=== PATIENT | female | born 1965 | race Caucasian/White ===

== ENCOUNTER 2019-11-29 21:24 | Emergency (ER) | payer BC ==
[2019-11-29] MEDS ORDERED: methylPREDNISolone Sodium Succinate 125 MG/2 ML SDV IM ONE (22:32)
[2019-11-29] MEDS ORDERED: Ketorolac 60 MG/2 ML SDV IM ONE (22:33)
--- NOTE | 2019-11-29 22:42 | EDM.PDOC ---
ED HPI GENERAL MEDICAL PROBLEM - General Chief Complaint: General Stated Complaint: R HIP PAIN Time Seen by Provider: 11/29/19 22:00 Source of Information: Reports: Patient History Limitations: Reports: No Limitations - History of Present Illness INITIAL COMMENTS - FREE TEXT/NARRATIVE: Right hip pain present for last 2 weeks. Has been on feet more at work, but denies any other change in activity or injury. Sometimes radiates down proximal hip. No numbness or tingling. No leg weakness. No history of similar pain in past. Movement makes it worse. Trying to get out of bed in mornings causes pain. Taking OTC meds but no help. Pain overall is getting worse. 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: Reports: Other (see below) Other 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: aleve at 1930, bio mendoza Right Hip Pain Score (Numeric/FACES): 8 - Related Data Allergies Allergy/AdvReac Type Severity Reaction Status Date / Time No Known Allergies Allergy Verified 11/29/19 21:33 Home Meds: Home Meds Acetaminophen [Tylenol Extra Strength] 1,000 mg PO Q6H PRN 11/29/19 [History] Ibuprofen [Advil] 400 mg PO Q6H PRN 11/29/19 [History] Menthol [Biofreeze] 1 applic TP Q4H PRN 11/29/19 [History] Naproxen Sodium [Aleve] 220 mg PO BID PRN 11/29/19 [History] Past Medical History HEENT History: Reports: Impaired Vision DISTRICT ATTORNEY History: Reports: Other (See Below) Other DISTRICT ATTORNEY History: D& C after childbirth Endocrine/Metabolic History: Reports: Obesity/BMI 30+ Dermatologic History: Reports: None - Past Surgical History Musculoskeletal Surgical History: Reports: Other (See Below) Other Musculoskeletal Surgeries/Procedures:: bunionectomy, bilat. Social & Family History - Tobacco Use Smoking Status *Q: Never Smoker Second Hand Smoke Exposure: No - Caffeine Use Caffeine Use: Reports: Coffee - Recreational Drug Use Recreational Drug Use: No ED ROS GENERAL - Review of Systems Review Of Systems: See Below Constitutional: Reports: No Symptoms. Denies: Fever, Chills HEENT: Reports: Other (no acute changes) Respiratory: Reports: No Symptoms Cardiovascular: Reports: No Symptoms GI/Abdominal: Reports: No Symptoms : Reports: No Symptoms Musculoskeletal: Reports: Other (right hip pain) Skin: Reports: No Symptoms Neurological: Reports: Difficulty Walking (right hip pain), Gait Disturbance (right hip pain). Denies: Dizziness, Numbness, Paresthesia, Tingling ED EXAM, GENERAL - Physical Exam Exam: See Below Exam Limited By: No Limitations General Appearance: Alert, Obese, Other (intermittent complaint of pain during exam during certain movements. ) Eye Exam: Bilateral Eye: EOMI, PERRL Ears: Hearing Grossly Normal Nose: No: Nasal Deformity, Nasal Swelling, Nasal Drainage Throat/Mouth: Normal Voice, No Airway Compromise Head: Atraumatic, Normocephalic Neck: Supple Respiratory/Chest: No Respiratory Distress, Lungs Clear, Normal Breath Sounds, No Accessory Muscle Use, Chest Non-Tender Cardiovascular: Regular Rate, Rhythm, No Murmur GI/Abdominal: Normal Bowel Sounds, Soft, Non-Tender, No Distention (Female) Exam: Deferred Rectal (Female) Exam: Deferred Back Exam: Decreased Range of Motion (due to right low back/right hip pain). No: CVA Tenderness (L), CVA Tenderness (R), Paraspinal Tenderness, Vertebral Tenderness Extremities: Normal Capillary Refill, Limited Range of Motion (right leg/patient cannot lift it without low back pain. Negative straight leg raise with passive ROM bilateral legs. Has tenderness in sciatic notch with palpation that reproduces patient's pain complaint. ) Neurological: Alert, Oriented, Normal Cognition, Normal Reflexes, No Motor/Sensory Deficits Psychiatric: Normal Affect, Normal Mood Skin Exam: Warm, Dry, Intact, Normal Color, No Rash Course - Vital Signs Last Recorded V/S: Last Vital Signs Temp 36.8 C 11/29/19 21:26 Pulse 74 11/29/19 21:26 Resp 16 11/29/19 21:26 BP 162/88 H 11/29/19 21:35 Pulse Ox 99 11/29/19 21:26 - Orders/Labs/Meds Orders: Active Orders 24 hr Category Date Time Status Hip Min 2V or 3V Rt [CR] Stat Exams 11/29/19 21:43 Taken Lumbar Spine 2 or 3V [CR] Stat Exams 11/29/19 21:44 Taken Meds: Medications Discontinued Medications Generic Name Dose Route Start Last Admin Trade Name Freq PRN Reason Stop Dose Admin Ketorolac Tromethamine 60 mg 06/20/20 22:33 Toradol IM 11/29/19 22:34 ONETIME ONE Methylprednisolone Sodium Succinate 125 mg 11/29/19 22:32 Solu-Medrol IM 11/29/19 22:33 ONETIME ONE - Re-Assessments/Exams Free Text/Narrative Re-Assessment/Exam: Xray of right hip and lumbar spine showed no acute changes or significant degenerative changes. Abnormality of T10 noted that is of unknown significance. No pain complaint/tenderness in that area. Pending formal Radiology review. Will treat for sciatica/low back pain exacerbation. Single dose of Toradol and Solu-medrol given to help with pain and swelling. Send home bottles of Tramadol (10) and Flexeril for use for spasm and pain. Cautions reviewed with patient concerning side effects of meds and not to take extra doses. Recommend follow up to establish a primary care provider for routine physical/recheck BP and assess for HTN/and re-evaluated right sciatic complaint. Patient may benefit from referral to PT and may require additional imaging if pain does not improve. Departure - Departure Time of Disposition: 22:55 Disposition: Home, Self-Care 01 Condition: Good Clinical Impression: Right-sided low back pain with sciatica Qualifiers: Chronicity: acute Sciatica laterality: sciatica of right side Qualified Code(s): M54.41 - Lumbago with sciatica, right side HTN (hypertension) Qualifiers: Hypertension type: essential hypertension Qualified Code(s): I10 - Essential (primary) hypertension - Discharge Information *PRESCRIPTION DRUG MONITORING PROGRAM REVIEWED*: Not Applicable *COPY OF PRESCRIPTION DRUG MONITORING REPORT IN PATIENT [place]: Not Applicable Instructions: Sciatica, Hypertension, Adult, [id number] Referrals: PCP,None [Primary Care Provider] - Additional Instructions: Take Flexeril for muscle spasms, and Tramadol for pain. OK to try CBD oil. Follow up with a local primary care provider for recheck in the next week if pain does not improve significantly. You may benefit from referral to PT as we discussed. You may need additional imaging to get a better look at the low back. You also need to get a basic physical and have some screening labs to make certain things appear to be functioning well, such as your kidneys, and that blood sugar is in normal range. You blood pressure was high tonight and that also needs to be rechecked. If it is not in normal range, you can discuss diet/possible meds to help treat it. Follow up as needed otherwise if you have worsening problems. Sepsis Event Note (ED) - Evaluation Sepsis Screening Result: No Definite Risk - Focused Exam Vital Signs: Vital Signs Temp Pulse Resp BP Pulse Ox 11/29/19 21:35 162/88 H 11/29/19 21:26 36.8 C 74 16 183/88 H 99 - My Orders Last 24 Hours: My Active Orders 11/29/19 21:43 Hip Min 2V or 3V Rt [CR] Stat 11/29/19 21:44 Lumbar Spine 2 or 3V [CR] Stat - Assessment/Plan Last 24 Hours: My Active Orders 11/29/19 21:43 Hip Min 2V or 3V Rt [CR] Stat 11/29/19 21:44 Lumbar Spine 2 or 3V [CR] Stat
== END 2019-11-29 23:10 | disposition home or self-care (01) ==
LOC: LL.ED 21:24
DX: M54.41 Lumbago with sciatica, right side (principal); I10 Essential (primary) hypertension; E66.9 Obesity, unspecified; Z68.36 Body mass index [BMI] 36.0-36.9, adult; Z79.899 Other long term (current) drug therapy
CPT/HCPCS: 72100; 96372; 99283; J1885; J2930